=== PATIENT | male | born 1955 | race Caucasian/White ===

== ENCOUNTER 2024-01-01 06:27 | Day surgery (SDC) | payer OTHER, SELFPAY ==
[2024-01-01 10:10] VITALS: BMI 38.7
[2024-01-01 10:15] VITALS: BP 154/98
[2024-01-01 10:27] LABS: Glucose - Point of Care 169 mg/dl (70-99)
[2024-01-01 11:55] VITALS: BP 120/92
[2024-01-01 12:00] VITALS: BP 130/103
[2024-01-01 12:15] VITALS: BP 127/82
== END 2024-01-01 12:35 | disposition home or self-care (01) ==
LOC: GI 06:27
PROVIDERS: ATTENDING PHYSICIAN Internal Medicine Gastroenterology
DX: K31.89 Other diseases of stomach and duodenum (principal); T18.3XXA Foreign body in small intestine, initial encounter; W44.9XXA Unspecified foreign body entering into or through a natural orifice, initial encounter; K86.9 Disease of pancreas, unspecified; K26.4 Chronic or unspecified duodenal ulcer with hemorrhage; K83.8 Other specified diseases of biliary tract; R93.2 Abnormal findings on diagnostic imaging of liver and biliary tract
CPT/HCPCS: 43237; 82962